=== PATIENT | male | born 1965 | race Two or more races ===

== ENCOUNTER 2018-03-22 11:43 | Emergency (ER) | payer MEDICARE, OTHER ==
[2018-03-22] MEDS ORDERED: morphine 2 MG INJ IV (12:10)
[2018-03-22 12:34] LABS: ADD MAN DIFF? NO
[2018-03-22] MEDS: SOD CHLORIDE 0.9% 500 ML IV (12:39)
[2018-03-22] MEDS: ONDANSETRON 4 MG INJ IV (12:39)
[2018-03-22 12:44] LABS: WHITE BLOOD COUNT 9.7 10^3/ul (4.8-10.8)
[2018-03-22 12:44] LABS: BASOPHIL # 0.1 10^3/ul (0.0-0.1); BASOPHILS % 0.6 % (0.0-2.0); EOSINOPHILS # 0.3 10^3/ul (0.0-0.5); EOSINOPHILS % 2.9 % (0.0-7.0); HEMATOCRIT 42.8 % (42.0-52.0); HEMOGLOBIN 13.8 g/dl (14.0-18.0); LYMPHOCYTES # 2.3 10^3/ul (0.8-2.9); LYMPHOCYTES % 23.7 % (15.0-51.0); MEAN CORPUSCULAR HEMOGLOBIN 27.5 pg (29.0-33.0); MEAN CORPUSCULAR HGB CONC 32.2 g/dl (32.0-37.0); MEAN CORPUSCULAR VOLUME 85.4 fl (82.0-101.0); MEAN PLATELET VOLUME 11.4 fl (7.4-10.4); MONOCYTE # 0.6 10^3/ul (0.3-0.9); MONOCYTES % 5.8 % (0.0-11.0); NEUTROPHIL # 6.4 10^3/ul (1.6-7.5); NEUTROPHILS % 66.2 % (39.0-77.0); PLATELET COUNT 170 10^3/UL (140-415); RED BLOOD COUNT 5.01 10^6/ul (4.70-6.10); RED CELL DISTRIBUTION WIDTH 15.8 % (11.5-14.5)
[2018-03-22 13:01] LABS: ALANINE AMINOTRANSFERASE 23 IU/L (13-69); ALBUMIN 4.6 g/dl (3.3-4.9); ALBUMIN/GLOBULIN RATIO 1.24; ALKALINE PHOSPHATASE 71 IU/L (42-121); ANION GAP 11 (5-13); ASPARTATE AMINO TRANSFERASE 27 IU/L (15-46); BILIRUBIN,INDIRECT 0.3 mg/dl (0-1.1); BILIRUBIN,TOTAL 0.3 mg/dl (0.2-1.3); BLOOD UREA NITROGEN 15 mg/dl (7-20); CALCIUM 9.7 mg/dl (8.4-10.2); CARBON DIOXIDE 22 mmol/L (21-31); CHLORIDE 109 mmol/L (97-110); Estimated GFR > 60 mL/min (>60); GLUCOSE 110 mg/dl (70-220); LIPASE 110 U/L (23-300); POTASSIUM 4.3 mmol/L (3.5-5.1); SODIUM 142 mmol/L (135-144); TOTAL PROTEIN 8.3 g/dl (6.1-8.1)
[2018-03-22 13:02] LABS: ADD UMIC YES; UR ASCORBIC ACID NEGATIVE (NEGATIVE); UR BILIRUBIN (Dip) NEGATIVE (NEGATIVE); UR BLOOD (Dip) NEGATIVE (NEGATIVE); UR CLARITY CLEAR (CLEAR); UR COLOR YELLOW (YELLOW); UR GLUCOSE (Dip) NEGATIVE (NEGATIVE); UR KETONES (Dip) NEGATIVE (NEGATIVE); UR LEUKOCYTE ESTERASE (Dip) NEGATIVE Leu/ul (NEGATIVE); UR NITRITE (Dip) NEGATIVE (NEGATIVE); UR RBC 2 /HPF (0-5); UR SPECIFIC GRAVITY (Dip) 1.013 (1.003-1.030); UR TOTAL PROTEIN (Dip) 2+ mg/dl (NEGATIVE); UR UROBILINOGEN (Dip) NEGATIVE (NEGATIVE); UR WBC 1 /HPF (0-5)
== END 2018-03-22 14:19 | disposition home or self-care (01) ==
LOC: E/R 11:43
DX: R10.9 Unspecified abdominal pain (principal); I10 Essential (primary) hypertension; E11.9 Type 2 diabetes mellitus without complications; F17.210 Nicotine dependence, cigarettes, uncomplicated; Z79.82 Long term (current) use of aspirin
CPT/HCPCS: 36415; 76705; 80053; 81001; 83690; 85025; 93005; 96374; 99285-25

== ENCOUNTER → 2018-05-09 | Outpatient (CLI) | payer MEDICARE, BC | END | disposition home or self-care (01) | LOC: RAD 12:57 | DX: J44.9 Chronic obstructive pulmonary disease, unspecified (principal); R06.00 Dyspnea, unspecified; F17.200 Nicotine dependence, unspecified, uncomplicated | CPT/HCPCS: 71046 ==

== ENCOUNTER 2018-05-16 09:41 | Observation (INO) | payer MEDICARE, BC ==
[~2018-05-16 09:41] MED LIST: CEFAZOLIN 2 GM/50 ML (PMX) 50 ML IVPB; DESFLURANE 15 MIN; LACTATED RINGER'S 1,000 ML IV*
[2018-05-16] MEDS ORDERED: HYDROmorphONE 1 MG/5 ML IV SYRINGE IV (12:30)
[2018-05-16] MEDS ORDERED: METOCLOPRAMIDE 10 MG INJ IV (12:30)
[2018-05-16] MEDS ORDERED: hydrALAzine 20 MG INJ IV (12:30)
[2018-05-16] MEDS ORDERED: LABETALOL HCL 20MG INJ IV (12:30)
[2018-05-16] MEDS ORDERED: DIPHENHYDRAMINE 50 MG INJ IV (12:30)
[2018-05-16] MEDS ORDERED: ALBUTEROL 0.083% (NEB) 2.5 MG/3 ML AMP HHN (12:30)
[2018-05-16] MEDS ORDERED: ONDANSETRON 4 MG INJ IV ×2 (12:30→14:30)
[2018-05-16] MEDS ORDERED: MEPERIDINE 25 MG INJ IV (12:30)
[2018-05-16] MEDS ORDERED: FENTAnyl 50 MCG/ML VIAL IV (12:30)
[2018-05-16] MEDS ORDERED: PROPOFOL 40 ML (12:44)
[2018-05-16] MEDS ORDERED: FENTAnyl 50 MCG/ML VIAL (12:45)
[2018-05-16] MEDS ORDERED: ROPIVACAINE 0.5 % 30 ML VIAL (12:52)
[2018-05-16] MEDS ORDERED: ROCURONIUM 50 MG INJ (12:59)
[2018-05-16] MEDS ORDERED: CEFAZOLIN 1 GM INJ (12:59)
[2018-05-16] MEDS ORDERED: SUCCINYLCHOLINE CHLORIDE 100 MG/5 ML SYG IV (12:59)
[2018-05-16] MEDS ORDERED: SUGAMMADEX SODIUM 200 MG/2 ML VIAL IV (12:59)
[2018-05-16] MEDS: BUPIVACAINE 0.5%/EPI (SDV) 30 ML INJ (13:21)
[2018-05-16] MEDS: LIDOCAINE 1% (MPF) 30 ML INJ (13:22)
[2018-05-16] MEDS ORDERED: IBUPROFEN 600 MG TAB PO (14:30)
[2018-05-16] MEDS: HYDROmorphONE 1 MG/5 ML IV SYRINGE IV ×2 (14:32→14:41)
[2018-05-16] MEDS: FENTAnyl 50 MCG/ML VIAL IV (15:03)
[2018-05-16] MEDS: HYDROmorphONE 0.5 MG/0.5 ML SYG IV (18:13)
[2018-05-16] MEDS: HYDROCODONE/APAP (5/325) TAB PO (21:37)
[2018-05-16] MEDS: KETOROLAC 30 MG INJ IV (22:56)
[2018-05-17] MEDS: HYDROCODONE/APAP (5/325) TAB PO ×2 (03:23→11:10)
[2018-05-17] MEDS: HYDROmorphONE 0.5 MG/0.5 ML SYG IV ×2 (07:14→14:52)
[2018-05-17] MEDS: LOSARTAN 25 MG TAB PO (13:04)
[2018-05-17] MEDS: METOPROLOL (XL) 50 MG TAB PO (13:04)
== END 2018-05-17 16:20 | disposition home or self-care (01) ==
LOC: SDS 09:41 → 2NE 15:14
DX: K80.10 Calculus of gallbladder with chronic cholecystitis without obstruction (principal); K76.0 Fatty (change of) liver, not elsewhere classified; E78.5 Hyperlipidemia, unspecified; I10 Essential (primary) hypertension; E11.9 Type 2 diabetes mellitus without complications; G47.30 Sleep apnea, unspecified; K21.9 Gastro-esophageal reflux disease without esophagitis; E66.01 Morbid (severe) obesity due to excess calories; Z68.41 Body mass index [BMI] 40.0-44.9, adult; Z79.82 Long term (current) use of aspirin
CPT/HCPCS: 47379; 88304; 88307; 88313; 99217